=== PATIENT | male | born 1975 | race Caucasian/White ===

== ENCOUNTER 2019-03-18 16:49 | Emergency (ER) | payer BC, OTHER ==
[2019-03-18] MEDS ORDERED: dexAMETHasone 10 MG/ML VIAL ONE (18:08)
[2019-03-18] MEDS ORDERED: MORPHINE 4 MG/ML SYR ONE (18:09)
[2019-03-18] MEDS ORDERED: ONDANSETRON 4 MG/2 ML VIAL ONE (18:09)
[2019-03-18] MEDS ORDERED: KETOROLAC 30 MG/ML INJ ONE (18:09)
[2019-03-18] MEDS ORDERED: DIAZEPAM 10 MG/2 ML INJ SYRINGE ONE (18:09)
--- NOTE | 2019-03-18 19:01 | ER ---
Nurse's Notes [facility] Name: Arya Crespo Age: 43 yrs Sex: Male : 1975 Arrival Date: 03/18/2019 Time: 16:50 Bed 17 Private MD: Diagnosis: Sciatica, right side Presentation: 03/18 16:55 Presenting complaint: Patient states: right low back pain that radiates to the RLE. sv Transition of care: patient was not received from another setting of care. Onset of symptoms. Risk Assessment: Do you want to hurt yourself or someone else? Patient reports no desire to harm self or others. Initial Sepsis Screen: Does the patient meet any 2 criteria? No. Patient's initial sepsis screen is negative. Does the patient have a suspected source of infection? No. Patient's initial sepsis screen is negative. Care prior to arrival: None. 16:55 Method Of Arrival: Ambulatory sv 16:55 Acuity: DOMO 4 sv Historical: - Allergies: 16:56 PENICILLINS; sv - PMHx: 16:56 None; sv - PSHx: 16:56 toe; sv - Immunization history:: Flu vaccine is not up to date. - Social history:: Smoking status: Patient uses tobacco products, smokes 1.5 packs per day. - Ebola Screening: : No symptoms or risks identified at this time. Screenin:55 Abuse screen: Denies threats or abuse. Nutritional screening: No deficits noted. rb1 Tuberculosis screening: No symptoms or risk factors identified. Fall Risk None identified. Assessment: 16:55 General: Appears uncomfortable, Behavior is calm, cooperative. Pain: Complains of pain rb1 in right low back Pain radiates to right leg Pain currently is 8 out of 10 on a pain scale. at worst was 10 out of 10 on a pain scale. Pain began approximately 3 weeks. Neuro: Level of Consciousness is awake, alert, obeys commands, Oriented to person, place, time, situation. Cardiovascular: Capillary refill < 3 seconds is brisk in bilateral fingers. Respiratory: Airway is patent Respiratory effort is even, unlabored, Respiratory pattern is regular, symmetrical. GI: No signs and/or symptoms were reported involving the gastrointestinal system. : No signs and/or symptoms were reported regarding the genitourinary system. Derm: Skin is pink, warm \T\ dry. Musculoskeletal: Range of motion: intact in all extremities. 17:55 Reassessment: Patient appears in no apparent distress at this time. No changes from rb1 previously documented assessment. 18:59 Reassessment: Patient appears in no apparent distress at this time. Patient and/or rb1 family updated on plan of care and expected duration. Pain level reassessed. Patient is alert, oriented x 3, equal unlabored respirations, skin warm/dry/pink. Vital Signs: 16:57 BP 144 / 89; Pulse 75; Resp 18; Temp 98.6; Pulse Ox 97% ; Weight 95.25 kg; Height 6 ft. sv 4 in. (193.04 cm); Pain 8/10; 17:45 BP 157 / 84; Pulse 72; Resp 17; Pulse Ox 98% on R/A; Pain 8/10; rb1 18:45 BP 144 / 86; Pulse 70; Resp 17; Pulse Ox 98% on R/A; Pain 6/10; rb1 16:57 Body Mass Index 25.56 (95.25 kg, 193.04 cm) sv ED Course: 16:50 Patient arrived in ED. as 16:52 Kwabena Marcos PA is PHCP. [facility] 16:52 Nilesh Martinez MD is Attending Physician. [facility] 16:55 Patient has correct armband on for positive identification. Bed in low position. Call rb1 light in reach. Side rails up X 1. Pulse ox on. NIBP on. 16:56 Triage completed. sv 16:57 Arm band placed on. sv 17:06 Brielle Erazo, RN is Primary Nurse. rb1 18:15 Inserted saline lock: 22 gauge in right antecubital area, using aseptic technique. rb1 19:25 No provider procedures requiring assistance completed. IV discontinued, intact, rb1 bleeding controlled, No redness/swelling at site. Pressure dressing applied. Administered Medications: 18:20 Drug: morphine 4 mg Route: IVP; Site: right antecubital; rb1 18:35 Follow up: Response: No adverse reaction; Pain is decreased rb1 18:20 Drug: Zofran 4 mg Route: IVP; Site: right antecubital; rb1 18:35 Follow up: Response: No adverse reaction rb1 18:20 Drug: Ketorolac 30 mg Route: IVP; Site: right antecubital; rb1 18:35 Follow up: Response: No adverse reaction rb1 18:20 Drug: Decadron - Dexamethasone 10 mg Route: IVP; Site: right antecubital; rb1 18:35 Follow up: Response: No adverse reaction rb1 18:20 Drug: Valium 5 mg Route: IVP; Site: right antecubital; rb1 18:35 Follow up: Response: No adverse reaction rb1 Outcome: 19:00 Discharge ordered by . emil 19:25 Patient left the ED. tl2 19:25 Discharged to home ambulatory, with family. rb1 19:25 Condition: stable 19:25 Discharge instructions given to patient, Instructed on discharge instructions, follow up and referral plans. medication usage, Demonstrated understanding of instructions, follow-up care, medications, Prescriptions given X 2. Signatures: Maricruz Mckeon, RN RN Kwabena Pinto PA PA jmm Martinez, Amelia as Barber, Rebecca, RN RN rb1 Edwige Lyon RN RN tl2 Corrections: (The following items were deleted from the chart) 19:35 18:15 Inserted saline lock: 24 gauge in right antecubital area, using aseptic rb1 technique. rb1
--- NOTE | 2019-03-18 19:02 | EDPHYS ---
Physician Documentation [facility] Name: Arya Crespo Age: 43 yrs Sex: Male : 1975 Arrival Date: 03/18/2019 Time: 16:50 Bed 17 Private MD: ED Physician Nilesh Martinez HPI: 03/18 17:43 This 43 yrs old Male presents to ER via Ambulatory with complaints of Back jmm Pain, Leg Pain. 17:43 The patient presents with pain that is acute. Onset: The symptoms/episode jmm began/occurred gradually. The pain radiates to the right leg. Associated signs and symptoms: Pertinent negatives: abdominal pain, chest pain, dysuria, fever, headache, hematuria, incontinence, nausea, numbness, tingling, urinary retention, vomiting, weakness. This is a 43 year old male with no chronic medical condition that presents to the ED with complaints of lower back pain which radiates down the leg. Patient states the pain has worsened over the past 2 weeks. Denies incontinence, dysuria, weakness, fever. . Historical: - Allergies: 16:56 PENICILLINS; sv - PMHx: 16:56 None; sv - PSHx: 16:56 toe; sv - Immunization history:: Flu vaccine is not up to date. - Social history:: Smoking status: Patient uses tobacco products, smokes 1.5 packs per day. - Ebola Screening: : No symptoms or risks identified at this time. ROS: 17:43 Constitutional: Negative for fever, chills, and weight loss, Cardiovascular: Negative jmm for chest pain, palpitations, and edema, Respiratory: Negative for shortness of breath, cough, wheezing, and pleuritic chest pain. 17:43 Back: Positive for pain with movement. 17:43 MS/extremity: Positive for pain. 17:43 All other systems are negative. Exam: 17:43 Head/Face: atraumatic. Eyes: EOMI, no conjunctival erythema appreciated ENT: Moist jmm Mucus Membranes Neck: Trachea midline, Supple Chest/axilla: Normal chest wall appearance and motion. Cardiovascular: Regular rate and rhythm. No edema appreciated Respiratory: Normal respirations, no respiratory distress appreciated Abdomen/GI: Non distended, soft 17:43 Skin: General appearance color normal MS/ Extremity: Moves all extremities, no obvious deformities appreciated, no edema noted to the lower extremities Neuro: Awake and alert, normal gait Psych: Behavior is normal, Mood is normal, Patient is cooperative and pleasant 17:43 Constitutional: The patient appears alert, awake, uncomfortable. 17:43 Back: vertebral tenderness, is not appreciated, right paraspinal lumbar tenderness, no midline tenderness appreciated. . Vital Signs: 16:57 BP 144 / 89; Pulse 75; Resp 18; Temp 98.6; Pulse Ox 97% ; Weight 95.25 kg; Height 6 ft. sv 4 in. (193.04 cm); Pain 8/10; 17:45 BP 157 / 84; Pulse 72; Resp 17; Pulse Ox 98% on R/A; Pain 8/10; rb1 18:45 BP 144 / 86; Pulse 70; Resp 17; Pulse Ox 98% on R/A; Pain 6/10; rb1 16:57 Body Mass Index 25.56 (95.25 kg, 193.04 cm) sv MDM: 17:43 Patient medically screened. emil 18:59 Data reviewed: vital signs, nurses notes. Counseling: I had a detailed discussion with emil the patient and/or guardian regarding: the historical points, exam findings, and any diagnostic results supporting the discharge/admit diagnosis, the need for outpatient follow up, to return to the emergency department if symptoms worsen or persist or if there are any questions or concerns that arise at home. ED course: Patient is able to ambulate in the ED. I do not suspect cord compression or cauda equina. Patient advised to follow up with pcp and otherwise given strict return precautions. Patient understood and agrees with the plan of care. . Administered Medications: 18:20 Drug: morphine 4 mg Route: IVP; Site: right antecubital; rb1 18:35 Follow up: Response: No adverse reaction; Pain is decreased rb1 18:20 Drug: Zofran 4 mg Route: IVP; Site: right antecubital; rb1 18:35 Follow up: Response: No adverse reaction rb1 18:20 Drug: Ketorolac 30 mg Route: IVP; Site: right antecubital; rb1 18:35 Follow up: Response: No adverse reaction rb1 18:20 Drug: Decadron - Dexamethasone 10 mg Route: IVP; Site: right antecubital; rb1 18:35 Follow up: Response: No adverse reaction rb1 18:20 Drug: Valium 5 mg Route: IVP; Site: right antecubital; rb1 18:35 Follow up: Response: No adverse reaction rb1 Disposition: 03/19 07:30 Co-signature as Attending Physician, Nilesh Martinez MD I agree with the assessment and kdr plan of care. Disposition: 03/18/19 19:00 Discharged to Home. Impression: Sciatica, right side. - Condition is Stable. - Discharge Instructions: Sciatica. - Prescriptions for Ultracet 37.5- 325 mg Oral Tablet - take 1 tablet by ORAL route every 6 hours - for up to 5 days; do not exceed 8 tablets per day.; 20 tablet. Valium 5 mg Oral Tablet - take 1 tablet by ORAL route every 8 hours As needed; 20 tablet. - Medication Reconciliation Form, Thank You Letter, Antibiotic Education, Prescription Opioid Use form. - Follow up: Private Physician; When: 2 - 3 days; Reason: Recheck today's complaints, Continuance of care, Re-evaluation by your physician. Signatures: Maricruz Mckeon RN RN Nilesh Wilson MD MD kdr Mickail, Joel, PA PA jmm Barber, Rebecca, RN RN rb1 Edwige Lyon RN RN tl2 Corrections: (The following items were deleted from the chart) 03/18 19:25 19:00 03/18/2019 19:00 Discharged to Home. Impression: Sciatica, right side. Condition tl2 is Stable. Forms are Medication Reconciliation Form, Thank You Letter, Antibiotic Education, Prescription Opioid Use. Follow up: Private Physician; When: 2 - 3 days; Reason: Recheck today's complaints, Continuance of care, Re-evaluation by your physician. emil
[2019-03-18 19:32] VITALS: TEMP 98.6
[2019-03-18 19:33] VITALS: BP 157/84; O2SAT 98
== END 2019-03-18 19:25 | disposition home or self-care (01) ==
LOC: ER 16:49
DX: M54.31 Sciatica, right side (principal); F17.210 Nicotine dependence, cigarettes, uncomplicated; Z88.0 Allergy status to penicillin
CPT/HCPCS: 96375; 96374; 99284; J3360; J1100; J2405